=== PATIENT | female | born 1980 | race Caucasian/White ===

== ENCOUNTER 2017-07-22 21:29 | Inpatient (IN) | payer MEDICAID ==
[~2017-07-22] VITALS: Ht 165.1 cm; Wt 85.9 kg
[2017-07-22] MEDS ORDERED: OXYTOCIN 30U/ 0.9% NaCL 500ML 500 ML IV ONE (21:41)
[2017-07-22] MEDS ORDERED: NEWBORN KIT ONE (21:44)
[2017-07-22] MEDS ORDERED: LIDOCAINE/PF 1%, 30ML ONE (21:44)
[2017-07-22] MEDS ORDERED: MISOPROSTOL 200 MCG TABLET ONE (21:45)
[2017-07-22] MEDS ORDERED: OXYTOCIN 30U/ 0.9% NaCL 500ML 500 ML ONE (21:45)
[2017-07-22] MEDS ORDERED: ALUMINUM/MAG/SIMETHICONE 30 ML UDC PO PRN (22:00)
[2017-07-22] MEDS ORDERED: CALCIUM CARBONATE 500 MG TAB.CHEW PO PRN (22:00)
[2017-07-22] MEDS: PLEASE ENTER ALLERGIES MC SCH (22:00)
[2017-07-22] MEDS ORDERED: TERBUTALINE 1 MG/ML, 1ML SQ PRN (22:00)
[2017-07-22] MEDS: PLEASE ENTER HEIGHT AND WEIGHT MC SCH (22:00)
[2017-07-22] MEDS ORDERED: TERBUTALINE 1 MG/ML, 1ML IVPush PRN ×2 (22:00)
[2017-07-22] MEDS ORDERED: FENTANYL PF 100 MCG/2ML IVPush PRN (22:00)
[2017-07-22] MEDS ORDERED: OXYTOCIN 10 UNITS/ML, 1ML ONE (22:20)
[2017-07-22 22:47] LABS: MEAN CORPUSCULAR HEMOGLOBIN 29.2 pg (27.0-34.8); MEAN CORPUSCULAR HGB CONC 33.6 g/dL (32.4-35.8); MEAN CORPUSCULAR VOLUME 86.8 fL (80-100); MEAN PLATELET VOLUME 9.8 fL (7.4-10.4); PLATELET COUNT 284 x10^3/uL (130-400); RED BLOOD COUNT 4.58 x10^6/uL (3.82-5.3); RED CELL DISTRIBUTION WIDTH 13.8 % (9.6-15.2)
[2017-07-22 23:08] LABS: BASOPHILS # (AUTO) 0.25 x10^3/uL (0-0.1); BASOPHILS % (AUTO) 1 % (0-1); EOSINOPHILS # (AUTO) 0.02 x10^3/uL (0-0.4); EOSINOPHILS % (AUTO) 0 % (1-7); LYMPHOCYTES # (AUTO) 1.56 x10^3/uL (1-3.4); LYMPHOCYTES % (AUTO) 6 % (22-44); MD SCAN; MONOCYTES # (AUTO) 0.76 x10^3/uL (0.2-0.8); MONOCYTES % (AUTO) 3 % (2-9); NEUTROPHILS # (AUTO) 22.79 x10^3/uL (1.8-6.8); NEUTROPHILS % (AUTO) 90 % (42-75)
[2017-07-23] MEDS: LACTATED RINGERS 1,000 ML IV SCH ×6 (02:06→19:48)
[2017-07-23] MEDS ORDERED: FENTANYL PF 100 MCG/2ML ONE (02:13)
[2017-07-23] MEDS: FENTANYL PF 100 MCG/2ML IV PRN ×2 (02:17→02:39)
[2017-07-23] MEDS ORDERED: FENTANYL/BUPIV./NS/PF 250 ML EPIDCONT ONE (03:02)
[2017-07-23] MEDS ORDERED: BUPIVACAINE 0.25% ONE (03:02)
[2017-07-23] MEDS ORDERED: TERBUTALINE 1 MG/ML, 1ML ONE (03:07)
[2017-07-23] MEDS ORDERED: SODIUM CITRATE/CITRIC ACID 30 ML UDC ONE ×2 (03:12→03:13)
[2017-07-23] MEDS ORDERED: METOCLOPRAMIDE 5 MG/ML, 2ML ONE (03:12)
[2017-07-23] MEDS ORDERED: FENTANYL/BUPIV./NS/PF 250 ML EPIDCONT SCH (03:48)
[2017-07-23] MEDS ORDERED: LACTATED RINGERS 1,000 ML INTUTE SCH (04:00)
[2017-07-23] MEDS ORDERED: LACTATED RINGERS 1,000 ML INTUTE PRN (04:00)
[2017-07-23] MEDS ORDERED: EPHEDRINE 50 MG/ML, 1ML IVPush PRN (04:00)
[2017-07-23] MEDS ORDERED: LACTATED RINGERS 1,000 ML IVBOLUS PRN (04:00)
[2017-07-23] MEDS: D5%-LACTATED RINGERS 1,000 ML IV SCH ×3 (05:41→13:41)
[2017-07-23] MEDS: PLEASE ENTER ALLERGIES MC SCH ×2 (06:00→14:00)
[2017-07-23] MEDS: PLEASE ENTER HEIGHT AND WEIGHT MC SCH ×2 (06:00→14:00)
[2017-07-23] MEDS ORDERED: OXYTOCIN 30U/ 0.9% NaCL 500ML 500 ML IV PRN (06:13)
[2017-07-23 07:20] VITALS: BP 124/66
[2017-07-23] MEDS ORDERED: PREN1TAB60 PO (07:39)
[2017-07-23] MEDS ORDERED: DOCO100C PO (07:39)
[2017-07-23] MEDS ORDERED: METOCLOPRAMIDE 5 MG/ML, 2ML IVPush ONE (10:30)
[2017-07-23] MEDS ORDERED: SODIUM CITRATE/CITRIC ACID 30 ML UDC PO ONE (10:30)
[2017-07-23] MEDS: OXYTOCIN 30U/ 0.9% NaCL 500ML 500 ML IV SCH (14:16)
[2017-07-23] MEDS ORDERED: METHYLERGONOVINE 0.2 MG/ML IM PRN (14:30)
[2017-07-23] MEDS ORDERED: OXYcodone/APAP 5/325MG TABLET PO PRN ×2 (14:30)
[2017-07-23] MEDS ORDERED: ACETAMINOPHEN 325 MG TABLET PO PRN ×2 (14:30)
[2017-07-23] MEDS ORDERED: ONDANSETRON 2MG/ML, 2ML IV PRN (14:30)
[2017-07-23] MEDS: IBUPROFEN 600 MG TABLET PO PRN ×2 (15:46→23:33)
[2017-07-23 16:00] VITALS: BP 116/64
[2017-07-23 19:45] VITALS: BP 99/57
[2017-07-23] MEDS: DOCUSATE 100 MG CAPSULE PO PRN (23:33)
[2017-07-23 23:48] VITALS: BP 109/62
[2017-07-24] MEDS: OXYTOCIN 30U/ 0.9% NaCL 500ML 500 ML IV SCH (00:16)
[2017-07-24 03:33] VITALS: BP 113/59
[2017-07-24] MEDS: LACTATED RINGERS 1,000 ML IV SCH (03:48)
[2017-07-24 05:56] LABS: BASOPHILS # (AUTO) 0.01 x10^3/uL (0-0.1); BASOPHILS % (AUTO) 0 % (0-1); EOSINOPHILS # (AUTO) 0.19 x10^3/uL (0-0.4); EOSINOPHILS % (AUTO) 1 % (1-7); LYMPHOCYTES # (AUTO) 2.27 x10^3/uL (1-3.4); LYMPHOCYTES % (AUTO) 16 % (22-44); MD NO; MEAN CORPUSCULAR HEMOGLOBIN 29.6 pg (27.0-34.8); MEAN CORPUSCULAR HGB CONC 34.2 g/dL (32.4-35.8); MEAN CORPUSCULAR VOLUME 86.7 fL (80-100); MEAN PLATELET VOLUME 9.4 fL (7.4-10.4); MONOCYTES # (AUTO) 0.89 x10^3/uL (0.2-0.8); MONOCYTES % (AUTO) 6 % (2-9); NEUTROPHILS # (AUTO) 11.02 x10^3/uL (1.8-6.8); NEUTROPHILS % (AUTO) 77 % (42-75); PLATELET COUNT 180 x10^3/uL (130-400); RED BLOOD COUNT 2.99 x10^6/uL (3.82-5.3); RED CELL DISTRIBUTION WIDTH 13.9 % (9.6-15.2)
[2017-07-24] MEDS: IBUPROFEN 600 MG TABLET PO PRN ×3 (06:47→21:51)
[2017-07-24 08:02] VITALS: BP 98/54
[2017-07-24] MEDS: PRENATAL VIT/IRON/FA 1 EACH TABLET PO SCH (10:06)
[2017-07-24] MEDS: DOCUSATE 100 MG CAPSULE PO PRN ×2 (10:06→21:51)
[2017-07-24 21:50] VITALS: BP 119/72
[2017-07-25] MEDS ORDERED: IBUP-1222 PO (01:02)
[2017-07-25] MEDS: IBUPROFEN 600 MG TABLET PO PRN (06:24)
[2017-07-25 07:45] VITALS: BP 108/72
[2017-07-25] MEDS: PRENATAL VIT/IRON/FA 1 EACH TABLET PO SCH (10:26)
[2017-07-25] MEDS: DOCUSATE 100 MG CAPSULE PO PRN (10:26)
== END 2017-07-25 13:57 | disposition home or self-care (01) | DRG 775 ==
LOC: LDOP 21:29 → LDIP 21:51 → 2NW 07-23 14:50
PROVIDERS: ADMIT Obstetrics & Gynecology; ATTEND Obstetrics & Gynecology
PROC: 10E0XZZ Delivery of Products of Conception, External Approach (ICD-10-PCS; principal; 2017-07-23)
PROC: 0KQM0ZZ Repair Perineum Muscle, Open Approach (ICD-10-PCS; 2017-07-23)
PROC: 3E0R3BZ Introduction of Anesthetic Agent into Spinal Canal, Percutaneous Approach (ICD-10-PCS; 2017-07-23)
PROC: 00HU33Z Insertion of Infusion Device into Spinal Canal, Percutaneous Approach (ICD-10-PCS; 2017-07-23)
DX: O77.0 Labor and delivery complicated by meconium in amniotic fluid (principal); O42.92 Full-term premature rupture of membranes, unspecified as to length of time between rupture and onset of labor; O70.1 Second degree perineal laceration during delivery; Z37.0 Single live birth; Z3A.40 40 weeks gestation of pregnancy
CPT/HCPCS: 36415; 82803; 85025; 86850; 86900; J3010; J2590; J7120; J7121